=== PATIENT | male | born 1995 ===

== ENCOUNTER 2017-07-09 09:09 | Emergency (ER) | payer BC, MEDICAID, OTHER ==
[2017-07-09] MEDS ORDERED: HALDOL IM PRN (09:48)
[2017-07-09] MEDS ORDERED: ATIVAN IM PRN (09:48)
--- NOTE | 2017-07-09 09:57 | Emergency Department Report ---
ED Psych HPI - General Chief Complaint: Psych Stated Complaint: MH/1013/SELF HURT Time Seen by Provider: 07/09/17 09:47 Source: patient, police, RN notes reviewed Mode of arrival: Ambulatory Limitations: No Limitations, Language Barrier - History of Present Illness Initial Comments: This is a 21-year-old male who was sent to the ER on a 1013 by an outpatient addiction social worker. As per her documentation, patient has been threatening adults and children at home, destroying property with a baseball bat, impulsive behavior, erratic behavior, delusional thoughts, suicidal thoughts, multiple law enforcement calls. When I interviewed the patient he indicates that only his "feelings are hurting. " Patient indicates no headache, neck pain, chest pain, abdominal pain, shortness of breath. He indicates no urinary symptoms, he indicates he is not homicidal or suicidal. -: unknown Associated Psychiatric Symptoms: none History of same: Yes Quality: resolved prior to arrival Improves With: none Worsens With: none Associated Symptoms: denies other symptoms. denies: confusion, headache, shortness of breath, nausea, vomiting, syncope, insomnia Treatments Prior to Arrival: placed on mental he - Related Data Home Medications Medication Instructions Recorded Confirmed Last Taken Unobtainable [Unobtainable] 02/09/14 02/09/14 Unknown Allergies Allergy/AdvReac Type Severity Reaction Status Date / Time No Known Allergies Allergy Verified 07/09/17 09:29 ED Review of Systems ROS: Stated complaint: MH/1013/SELF HURT Other details as noted in HPI ED Past Medical Hx - Past Medical History Previous Medical History?: Yes Hx Congestive Heart Failure: No Hx Diabetes: No Hx Psychiatric Treatment: Yes (Bipolar) Hx Asthma: No Hx COPD: No - Surgical History Past Surgical History?: No - Social History Smoking Status: Former Smoker Substance Use Type: Marijuana - Medications Home Medications: Home Medications Medication Instructions Recorded Confirmed Last Taken Type Unobtainable [Unobtainable] 02/09/14 02/09/14 Unknown History ED Physical Exam - General Limitations: No Limitations General appearance: alert, in no apparent distress - Head Head exam: Present: atraumatic, normocephalic - Eye Eye exam: Present: normal appearance, EOMI. Absent: nystagmus - ENT ENT exam: Present: normal exam, normal orophraynx, mucous membranes moist, normal external ear exam - Neck Neck exam: Present: normal inspection, full ROM - Respiratory Respiratory exam: Present: normal lung sounds bilaterally. Absent: respiratory distress - Cardiovascular Cardiovascular Exam: Present: regular rate, normal rhythm, normal heart sounds. Absent: systolic murmur, diastolic murmur, rubs, gallop - GI/Abdominal GI/Abdominal exam: Present: soft, normal bowel sounds. Absent: distended, tenderness, guarding, rebound, rigid, pulsatile mass - Rectal Rectal exam: Present: deferred - Extremities Exam Extremities exam: Present: normal inspection, full ROM, normal capillary refill. Absent: tenderness, pedal edema, joint swelling, calf tenderness - Back Exam Back exam: Present: normal inspection, full ROM. Absent: tenderness, CVA tenderness (R), paraspinal tenderness, vertebral tenderness - Neurological Exam Neurological exam: Present: alert, oriented X3, CN II-XII intact, normal gait, other (Extraocular movements intact. Tongue midline. No facial droop. Facial sensation intact to light touch in the V1, V2, V3 distribution bilaterally. 5 and 5 strength in 4 extremities.. Sensation is intact to light touch in 4 extremities.). Absent: motor sensory deficit - Psychiatric Psychiatric exam: Present: anxious. Absent: homicidal ideation, suicidal ideation - Skin Skin exam: Present: warm, dry, intact, normal color. Absent: rash ED Course Vital Signs 07/09/17 12:30 Temperature 97.6 F Pulse Rate 59 L Respiratory 16 Rate Blood Pressure 105/88 [Right] O2 Sat by Pulse 98 Oximetry - Reevaluation(s) Reevaluation #1: 07/09/17 10:35 Differential diagnosis, including but not limited to: Mood disorder, medical clearance for psychiatric placement Assessment and plan: 21-year-old male sent to the ER on 1012 for aggressive behavior, suicidality, in the emergency room he is neither suicidal or aggressive. He is pleasant, calm and cooperative. He is clinically sober, has GCS of 15, with an NIH score of 0. Because of an close documentation, and he will be continued on his 101, laboratory studies pending, we will discuss with the psychiatry team. Reevaluation #2: 07/09/17 10:50 Laboratory studies reviewed, they are unremarkable, at this point in time, I do not appreciate any immediate medical contraindication to psychiatric admission/ evaluation, consultation. Crisis team has been informed. Reevaluation #3: 07/09/17 12:12 Patient is endorsing numerous grandiose thoughts to mental health, they recommend continuing his 1013. ED Medical Decision Making - Lab Data Result diagrams: 07/09/17 09:53 07/09/17 09:53 Lab Results 07/09/17 07/09/17 07/09/17 Range/Units 09:45 09:45 09:53 WBC (4.5-11.0) K/mm3 RBC (3.65-5.03) M/mm3 Hgb (11.8-15.2) gm/dl Hct (35.5-45.6) % MCV (84-94) fl MCH (28-32) pg MCHC (32-34) % RDW (13.2-15.2) % Plt Count (140-440) K/mm3 Lymph % (Auto) (13.4-35.0) % [place] % (Auto) (0.0-7.3) % Eos % (Auto) (0.0-4.3) % Baso % (Auto) (0.0-1.8) % Lymph # (1.2-5.4) K/mm3 [place] # (0.0-0.8) K/mm3 Eos # (0.0-0.4) K/mm3 Baso # (0.0-0.1) K/mm3 Seg Neutrophils % (40.0-70.0) % Seg Neutrophils # (1.8-7.7) K/mm3 Sodium 140 (137-145) mmol/L Potassium 3.9 (3.6-5.0) mmol/L Chloride 101.7 (98-107) mmol/L Carbon Dioxide 23 (22-30) mmol/L Anion Gap 19 mmol/L BUN 12 (9-20) mg/dL Creatinine 0.9 (0.8-1.5) mg/dL Estimated GFR > 60 ml/min BUN/Creatinine Ratio 13 % Glucose 99 (75-100) mg/dL Calcium 8.8 (8.4-10.2) mg/dL Total Creatine Kinase (55-170) units/L Urine Color Yellow (Yellow) Urine Turbidity Clear (Clear) Urine pH 7.0 (5.0-7.0) Ur Specific [place] 1.027 (1.003-1.030) Urine Protein 30 mg/dl (Negative) mg/dL Urine Glucose (UA) Neg (Negative) mg/dL Urine Ketones 20 (Negative) mg/dL Urine Blood Sm (Negative) Urine Nitrite Neg (Negative) Urine Bilirubin Sm (Negative) Urine Urobilinogen 4.0 (<2.0) mg/dL Ur Leukocyte Esterase Tr (Negative) Urine WBC (Auto) 5.0 (0.0-6.0) /HPF Urine RBC (Auto) 7.0 (0.0-6.0) /HPF Urine Mucus 3+ /HPF Urine Opiates Screen Presumptive negative Urine Methadone Screen Presumptive negative Ur Barbiturates Screen Presumptive negative Ur Phencyclidine Scrn Presumptive negative Ur Amphetamines Screen Presumptive negative Urine Cocaine Screen Presumptive negative 07/09/17 07/09/17 Range/Units 09:53 09:53 WBC 9.4 (4.5-11.0) K/mm3 RBC 4.93 (3.65-5.03) M/mm3 Hgb 15.7 H (11.8-15.2) gm/dl Hct 46.9 H (35.5-45.6) % MCV 95 H (84-94) fl MCH 32 (28-32) pg MCHC 33 (32-34) % RDW 14.2 (13.2-15.2) % Plt Count 133 L (140-440) K/mm3 Lymph % (Auto) 14.1 (13.4-35.0) % [place] % (Auto) 6.6 (0.0-7.3) % Eos % (Auto) 0.1 (0.0-4.3) % Baso % (Auto) 0.3 (0.0-1.8) % Lymph # 1.3 (1.2-5.4) K/mm3 [place] # 0.6 (0.0-0.8) K/mm3 Eos # 0.0 (0.0-0.4) K/mm3 Baso # 0.0 (0.0-0.1) K/mm3 Seg Neutrophils % 78.9 H (40.0-70.0) % Seg Neutrophils # 7.4 (1.8-7.7) K/mm3 Sodium (137-145) mmol/L Potassium (3.6-5.0) mmol/L Chloride (98-107) mmol/L Carbon Dioxide (22-30) mmol/L Anion Gap mmol/L BUN (9-20) mg/dL Creatinine (0.8-1.5) mg/dL Estimated GFR ml/min BUN/Creatinine Ratio % Glucose (75-100) mg/dL Calcium (8.4-10.2) mg/dL Total Creatine Kinase 492 H (55-170) units/L Urine Color (Yellow) Urine Turbidity (Clear) Urine pH (5.0-7.0) Ur Specific [place] (1.003-1.030) Urine Protein (Negative) mg/dL Urine Glucose (UA) (Negative) mg/dL Urine Ketones (Negative) mg/dL Urine Blood (Negative) Urine Nitrite (Negative) Urine Bilirubin (Negative) Urine Urobilinogen (<2.0) mg/dL Ur Leukocyte Esterase (Negative) Urine WBC (Auto) (0.0-6.0) /HPF Urine RBC (Auto) (0.0-6.0) /HPF Urine Mucus /HPF Urine Opiates Screen Urine Methadone Screen Ur Barbiturates Screen Ur Phencyclidine Scrn Ur Amphetamines Screen Urine Cocaine Screen Vital Signs 07/09/17 12:30 Temperature 97.6 F Pulse Rate 59 L Respiratory 16 Rate Blood Pressure 105/88 [Right] O2 Sat by Pulse 98 Oximetry Critical care attestation.: If time is entered above; I have spent that time in minutes in the direct care of this critically ill patient, excluding procedure time. ED Disposition Clinical Impression: Medical clearance for psychiatric admission Disposition: [id number]/[id number] PSY HOSP/PSY UNIT Is pt being admited?: No Does the pt Need Aspirin: No Condition: Good Referrals: PRIMARY CARE, [Primary Care Provider] - 3-5 Days
[2017-07-09 10:17] LABS: Basophils % (Auto) 0.3 % (0.0-1.8); Eosinophils % (Auto) 0.1 % (0.0-4.3); Hematocrit 46.9 % (35.5-45.6); Hemoglobin 15.7 gm/dl (11.8-15.2); Lymphocytes # (Auto) 1.3 K/mm3 (1.2-5.4); Lymphocytes % (Auto) 14.1 % (13.4-35.0); Mean Corpuscular HGB Conc 33 % (32-34); Mean Corpuscular Hemoglobin 32 pg (28-32); Mean Corpuscular Volume 95 fl (84-94); Monocytes # (Auto) 0.6 K/mm3 (0.0-0.8); Monocytes % (Auto) 6.6 % (0.0-7.3); Platelet Count 133 K/mm3 (140-440); Red Blood Count 4.93 M/mm3 (3.65-5.03); Red Cell Distribution Width 14.2 % (13.2-15.2)
[2017-07-09 10:23] LABS: Bilirubin,Urine SM (Negative); Blood,Urine SM (Negative); Color,Urine Yellow (Yellow); Mucus,Urine 3+ /HPF; Nitrite,Urine NEG (Negative)
[2017-07-09 10:24] LABS: BUN/Creatinine Ratio 13; Blood Urea Nitrogen 12 mg/dL (9-20); Calcium 8.8 mg/dL (8.4-10.2); Hemolysis Index 14
[2017-07-09 10:30] LABS: Amphetamine Screen,Urine PRESUMPTIVE NEGATIVE; Cocaine Screen,Urine PRESUMPTIVE NEGATIVE; Methadone Screen,Urine PRESUMPTIVE NEGATIVE; Opiate Screen,Urine PRESUMPTIVE NEGATIVE
[2017-07-09 10:48] LABS: Ictotest,Urine Positive (Negative)
[2017-07-09 11:00] LABS: Benzodiazepines Screen,Urine PRESUMPTIVE POSITIVE; Cannabinoid Screen,Urine PRESUMPTIVE POSITIVE
[2017-07-09] MEDS ORDERED: TYLENOL PO ONE (13:00)
[2017-07-09] MEDS ORDERED: TYLENOL ONE (15:54)
[2017-07-09 20:13] VITALS: BP 106/62
== END 2017-07-09 20:19 ==
LOC: ED 09:09 → EEVIPCON 09:09 → ED 20:19
DX: R45.87 Impulsiveness (principal); R45.851 Suicidal ideations; F31.9 Bipolar disorder, unspecified; Z87.891 Personal history of nicotine dependence; F12.10 Cannabis abuse, uncomplicated
CPT/HCPCS: 36415; 80048; 80307; 81001; 82550; 85025; 96372; 99285; G0480; J1630; J2060; 80320